=== PATIENT | female | born 1995 | race African-American/Black ===

== ENCOUNTER 2017-08-14 11:15 | Emergency (ER) | payer BC ==
[~2017-08-14] VITALS: Ht 157.5 cm; Wt 50.0 kg
[2017-08-14 11:19] VITALS: BP 108/62; PULSE 110; RESP 18; TEMP 99.2; O2SAT 100
--- NOTE | 2017-08-14 12:51 | PD ---
HPI Chief Complaint: GI Complaint Time Seen by Provider: 12:42 Travel History International Travel<30 days: No Contact w/Intl Traveler<30days: No Traveled to known affect area: No History of Present Illness HPI The patient is a 22-year-old female who presents to the emergency department for epigastric abdominal discomfort and vomiting that started Saturday night. The patient was at a basketball game, at [facility], where she had a sausage hotdog and chips to eat. She then developed epigastric abdominal pain with nausea and vomiting. She notes decreased oral intake secondary to persistent vomiting. She denies any diarrhea or lower abdominal pain. Last menstrual cycle was July 27, 2017, she denies . She denies any fever, chills, sweats, or bodyaches. She denies any dysuria. Symptoms are moderate. There are no current alleviating factors. PFSH Past Medical History Medical History: Denies Significant Hx ?: Not LMP: 07/27/2017 Past Surgical History Surgical History: No Previous Surgery Social History Alcohol Use: No Tobacco Use: No Substance Use: No Allergies-Medications (Allergen,Severity, Reaction): Coded Allergies: No Known Allergies (Unverified , 08/14/17) Reported Meds & Prescriptions Reported Meds & Active Scripts Active Zofran Odt (Ondansetron Odt) 4 Mg Tab 4 Mg SL Q6HR PRN Review of Systems Except as stated in HPI: all other systems reviewed are Neg General / Constitutional: No: Fever, Chills Cardiovascular: No: Chest Pain or Discomfort Respiratory: No: Shortness of Breath Gastrointestinal: Positive: Nausea, Vomiting, No: Diarrhea, Abdominal Pain Genitourinary: No: Dysuria Musculoskeletal: No: Myalgias Physical Exam Narrative GENERAL: Awake, alert, pleasant 22-year-old female who appears her stated age and is in no acute respiratory distress. SKIN: Focused skin assessment warm/dry. HEAD: Atraumatic. Normocephalic. EYES: Pupils equal and round. No scleral icterus. No injection or drainage. ENT: No nasal bleeding or discharge. Slightly dry mucous membranes. NECK: Trachea midline. No JVD. CARDIOVASCULAR: Regular, tachycardic with a heart rate of 110. RESPIRATORY: No accessory muscle use. Clear to auscultation. Breath sounds equal bilaterally. GASTROINTESTINAL: Abdomen soft, mild epigastric tenderness. No guarding or rigidity. MUSCULOSKELETAL: No obvious deformities. No clubbing. No cyanosis. No edema. NEUROLOGICAL: Awake and alert. No obvious cranial nerve deficits. Motor grossly within normal limits. Normal speech. PSYCHIATRIC: Appropriate mood and affect; insight and judgment normal. Data Data Last Documented VS Vital Signs Date Time Temp Pulse Resp B/P (MAP) Pulse Ox O2 Delivery O2 Flow Rate FiO2 08/14/17 11:19 99.2 110 18 108/62 (77) 100 Orders Orders Complete Blood Count With Diff (08/14/17 11:42) Comprehensive Metabolic Panel (08/14/17 11:42) Urinalysis - C+S If Indicated (08/14/17 11:42) Lipase (08/14/17 11:42) Ed Urine Pregnancytest Poc (08/14/17 11:42) Sodium Chlor 0.9% 1000 Ml Inj (Ns 1000 M (08/14/17 13:00) Ondansetron Inj (Zofran Inj) (08/14/17 13:00) Labs Laboratory Tests Test 08/14/17 11:50 08/14/17 11:55 White Blood Count 9.3 TH/MM3 Red Blood Count 5.04 MIL/MM3 Hemoglobin 14.6 GM/DL Hematocrit 44.0 % Mean Corpuscular Volume 87.4 FL Mean Corpuscular Hemoglobin 29.0 PG Mean Corpuscular Hemoglobin Concent 33.1 % Red Cell Distribution Width 13.6 % Platelet Count 161 TH/MM3 Mean Platelet Volume 9.2 FL Neutrophils (%) (Auto) 77.3 % Lymphocytes (%) (Auto) 13.9 % Monocytes (%) (Auto) 6.7 % Eosinophils (%) (Auto) 1.5 % Basophils (%) (Auto) 0.6 % Neutrophils # (Auto) 7.2 TH/MM3 Lymphocytes # (Auto) 1.3 TH/MM3 Monocytes # (Auto) 0.6 TH/MM3 Eosinophils # (Auto) 0.1 TH/MM3 Basophils # (Auto) 0.1 TH/MM3 CBC Comment DIFF FINAL Differential Comment Blood Urea Nitrogen 8 MG/DL Creatinine 0.72 MG/DL Random Glucose 56 MG/DL Total Protein 7.7 GM/DL Albumin 4.0 GM/DL Calcium Level 9.1 MG/DL Alkaline Phosphatase 49 U/L Aspartate Amino Transf (AST/SGOT) 25 U/L Alanine Aminotransferase (ALT/SGPT) 18 U/L Total Bilirubin 0.5 MG/DL Sodium Level 135 MEQ/L Potassium Level 4.0 MEQ/L Chloride Level 108 MEQ/L Carbon Dioxide Level 18.8 MEQ/L Anion Gap 8 MEQ/L Estimat Glomerular Filtration Rate 103 ML/MIN Lipase 192 U/L Urine Color LIGHT-YELLOW Urine Turbidity CLEAR Urine pH 8.0 Urine Specific [place] 1.012 Urine Protein NEG mg/dL Urine Glucose (UA) NEG mg/dL Urine Ketones NEG mg/dL Urine Occult Blood NEG Urine Nitrite NEG Urine Bilirubin NEG Urine Urobilinogen LESS THAN 2.0 MG/DL Urine Leukocyte Esterase NEG Urine RBC LESS THAN 1 /hpf Microscopic Urinalysis Comment CULT NOT INDICATED MDM Medical Decision Making Medical Screen Exam Complete: Yes Emergency Medical Condition: Yes Medical Record Reviewed: Yes Interpretation(s) Laboratory Tests Test 08/14/17 11:50 08/14/17 11:55 White Blood Count 9.3 TH/MM3 Red Blood Count 5.04 MIL/MM3 Hemoglobin 14.6 GM/DL Hematocrit 44.0 % Mean Corpuscular Volume 87.4 FL Mean Corpuscular Hemoglobin 29.0 PG Mean Corpuscular Hemoglobin Concent 33.1 % Red Cell Distribution Width 13.6 % Platelet Count 161 TH/MM3 Mean Platelet Volume 9.2 FL Neutrophils (%) (Auto) 77.3 % Lymphocytes (%) (Auto) 13.9 % Monocytes (%) (Auto) 6.7 % Eosinophils (%) (Auto) 1.5 % Basophils (%) (Auto) 0.6 % Neutrophils # (Auto) 7.2 TH/MM3 Lymphocytes # (Auto) 1.3 TH/MM3 Monocytes # (Auto) 0.6 TH/MM3 Eosinophils # (Auto) 0.1 TH/MM3 Basophils # (Auto) 0.1 TH/MM3 CBC Comment DIFF FINAL Differential Comment Blood Urea Nitrogen 8 MG/DL Creatinine 0.72 MG/DL Random Glucose 56 MG/DL Total Protein 7.7 GM/DL Albumin 4.0 GM/DL Calcium Level 9.1 MG/DL Alkaline Phosphatase 49 U/L Aspartate Amino Transf (AST/SGOT) 25 U/L Alanine Aminotransferase (ALT/SGPT) 18 U/L Total Bilirubin 0.5 MG/DL Sodium Level 135 MEQ/L Potassium Level 4.0 MEQ/L Chloride Level 108 MEQ/L Carbon Dioxide Level 18.8 MEQ/L Anion Gap 8 MEQ/L Estimat Glomerular Filtration Rate 103 ML/MIN Lipase 192 U/L Urine Color LIGHT-YELLOW Urine Turbidity CLEAR Urine pH 8.0 Urine Specific [place] 1.012 Urine Protein NEG mg/dL Urine Glucose (UA) NEG mg/dL Urine Ketones NEG mg/dL Urine Occult Blood NEG Urine Nitrite NEG Urine Bilirubin NEG Urine Urobilinogen LESS THAN 2.0 MG/DL Urine Leukocyte Esterase NEG Urine RBC LESS THAN 1 /hpf Microscopic Urinalysis Comment CULT NOT INDICATED Differential Diagnosis Differential diagnosis includes food poisoning, gastritis, gastritis, enteritis , colitis, viral syndrome, electrolyte abnormality, dehydration, acute kidney injury, acute renal failure. Narrative Course IV was established, labs are drawn and sent, and the patient was placed on cardiac telemetry monitoring and continuous pulse oximetry monitoring. The patient was administered Zofran 4 mg intravenously and 1 L of normal saline. Labs are unremarkable. Bedside UA test is negative. UA is negative. Lipase is unremarkable. The patient appears to have gastritis versus food poisoning. Patient was reassessed at 2 PM. The patient's symptoms have improved, she was provided by mouth challenge. The patient tolerated by mouth challenge without difficulty. Diagnosis Primary Impression: Nausea and vomiting Qualified Codes: R11.2 - Nausea with vomiting, unspecified Patient Instructions: General Instructions Additional Instructions: Please provide the patient a copy of her labs at discharge. Zofran as directed. Clear liquid diet and advance as tolerated. Follow-up with your primary physician. Med/Other Pt SpecificInfo: Prescription(s) given Scripts Ondansetron Odt (Zofran Odt) 4 Mg Tab 4 MG SL Q6HR Y for Nausea/Vomiting, #7 TAB 0 Refills Prov: Sai Morataya MD 08/14/17 Disposition: 01 DISCHARGE HOME Condition: Stable Sai Morataya MD Aug 14, 2017 12:51
[2017-08-14 12:58] LABS: AUTOMATED NEUTROPHIL # 7.2 TH/MM3 (1.8-7.7); BASOPHIL # 0.1 TH/MM3 (0-0.2); BASOPHIL % 0.6 % (0.0-2.0); EOSINOPHIL # 0.1 TH/MM3 (0-0.4); EOSINOPHIL % 1.5 % (0.0-4.0); HEMOGLOBIN 14.6 GM/DL (11.6-15.3); LYMPH % 13.9 % (9.0-44.0); LYMPHOCYTE # 1.3 TH/MM3 (1.0-4.8); MEAN CELL VOLUME 87.4 FL (80.0-100.0); MEAN CORPUSCULAR HGB CONC 33.1 % (32.0-36.0); MEAN PLATELET VOLUME 9.2 FL (7.0-11.0); MONO % 6.7 % (0.0-8.0); MONOCYTE # 0.6 TH/MM3 (0-0.9); NEUT % 77.3 % (16.0-70.0); PLATELET COUNT 161 TH/MM3 (150-450); RED BLOOD COUNT 5.04 MIL/MM3 (4.00-5.30); RED CELL DISTRIBUTION WIDTH 13.6 % (11.6-17.2); WHITE BLOOD COUNT 9.3 TH/MM3 (4.0-11.0)
[2017-08-14 13:00] LABS: BILIRUBIN, URINE NEG (NEG); BLOOD, URINE NEG (NEG); GLUCOSE,URINE NEG (NEG); KETONE, URINE NEG (NEG); NITRITE,URINE NEG (NEG); URINE COLOR LIGHT-YELLOW (YELLW/STRAW); URINE LEUKOCYTE ESTERASE NEG (NEG)
[2017-08-14] MEDS ORDERED: SODIUM CHLOR 0.9% 1000 ML INJ 1,000 ML IV ONE (13:00)
[2017-08-14] MEDS ORDERED: ONDANSETRON HCL 4 MG/2 ML VIAL IV PUSH ONE (13:00)
[2017-08-14 13:17] LABS: ALT (GPT) 18 U/L (9-42); AST (GOT) 25 U/L (16-38); BICARBONATE 18.8 MEQ/L (21.0-32.0); BLOOD UREA NITROGEN 8 MG/DL (7-18); CALCIUM 9.1 MG/DL (8.5-10.1); CHLORIDE 108 MEQ/L (98-107); CREATININE 0.72 MG/DL (0.50-1.00); GLOMERULAR FILTRATION RATE 103 ML/MIN (>89); GLUCOSE,RANDOM 56 MG/DL (74-106); SODIUM (NA) 135 MEQ/L (136-145)
[2017-08-14 13:19] LABS: ALKALINE PHOSPHATASE 49 U/L (45-117); TOTAL BILIRUBIN ADULT 0.5 MG/DL (0.2-1.0); TOTAL PROTEIN 7.7 GM/DL (6.4-8.2)
[2017-08-14] MEDS ORDERED: ZOFR4TAB3 SL (14:01)
== END 2017-08-14 14:41 | disposition home or self-care (01) ==
LOC: NEPD 11:15
DX: R11.2 Nausea with vomiting, unspecified (principal); R10.13 Epigastric pain
CPT/HCPCS: 80053; 81001; 83690; 84703; 85025; 96361; 96374; 99284; J2405; J7030

== ENCOUNTER 2017-08-16 18:08 | Emergency (ER) | payer BC ==
[~2017-08-16] VITALS: Ht 157.5 cm; Wt 50.0 kg
[~2017-08-16 18:08] MED LIST: ZOFR4TAB3 SL
[2017-08-16 18:10] VITALS: BP 122/80; PULSE 83; RESP 15; TEMP 98.5; O2SAT 99
[2017-08-16] MEDS ORDERED: AMOX500T PO (19:42)
--- NOTE | 2017-08-16 19:42 | PD ---
HPI Chief Complaint: ENT Complaint Time Seen by Provider: 19:33 Travel History International Travel<30 days: No Contact w/Intl Traveler<30days: No Traveled to known affect area: No History of Present Illness HPI 22-year-old female complains of sore throat. Patient states the symptoms started yesterday. Patient denies earache. Patient denies any coughing congestion. Patient denies any headache. Patient denies any body ache. Patient denies any nausea vomiting diarrhea. PFSH Past Medical History Medical History: Denies Significant Hx Diminished Hearing: No Immunizations Current: Yes Tetanus Vaccination: > 5 Years Influenza Vaccination: No ?: Not LMP: 07/27/17 : 0 Past Surgical History Surgical History: No Previous Surgery Social History Alcohol Use: No Tobacco Use: No Substance Use: No Allergies-Medications (Allergen,Severity, Reaction): Coded Allergies: No Known Allergies (Unverified , 08/16/17) Reported Meds & Prescriptions Reported Meds & Active Scripts Active No Active Prescriptions or Reported Medications Review of Systems General / Constitutional: No: Fever Eyes: No: Visual changes HENT: Positive: Sore Throat, No: Headaches Cardiovascular: No: Chest Pain or Discomfort Respiratory: No: Shortness of Breath Gastrointestinal: No: Abdominal Pain Genitourinary: No: Dysuria Musculoskeletal: No: Pain Skin: No Rash Neurologic: No: Weakness Psychiatric: No: Depression Endocrine: No: Polydipsia Hematologic/Lymphatic: No: Easy Bruising Physical Exam Narrative GENERAL: Well-nourished, well-developed patient. SKIN: Focused skin assessment warm/dry. HEAD: Normocephalic. EYES: No scleral icterus. No injection or drainage. TM: Clear. Throat: Mild erythematous. NECK: Supple, trachea midline. No JVD or lymphadenopathy. CARDIOVASCULAR: Regular rate and rhythm without murmurs, gallops, or rubs. RESPIRATORY: Breath sounds equal bilaterally. No accessory muscle use. GASTROINTESTINAL: Abdomen soft, non-tender, nondistended. MUSCULOSKELETAL: No cyanosis, or edema. BACK: Nontender without obvious deformity. No CVA tenderness. Data Data Last Documented VS Vital Signs Date Time Temp Pulse Resp B/P (MAP) Pulse Ox O2 Delivery O2 Flow Rate FiO2 08/16/17 18:10 98.5 83 15 122/80 (94) 99 MDM Medical Decision Making Medical Screen Exam Complete: Yes Emergency Medical Condition: Yes Differential Diagnosis Differential diagnosis including pharyngitis, viral versus strep Narrative Course 22-year-old female complains of sore throat. Diagnosis Primary Impression: Pharyngitis Qualified Codes: J02.9 - Acute pharyngitis, unspecified Patient Instructions: General Instructions Additional Instructions: Amoxicillin as directed. Tylenol for fever. Follow-up with personal physician. Return if worse. Med/Other Pt SpecificInfo: Prescription(s) given Scripts Amoxicillin (Amoxicillin) 500 Mg Tab 500 MG PO TID for Infection, #30 TAB 0 Refills Prov: Harjinder Buenrostro MD 08/16/17 Disposition: 01 DISCHARGE HOME Condition: Stable Harjinder Buenrostro MD Aug 16, 2017 19:42
== END 2017-08-16 19:56 | disposition home or self-care (01) ==
LOC: NEPD 18:08
DX: J02.9 Acute pharyngitis, unspecified (principal)
CPT/HCPCS: 99283

== ENCOUNTER 2017-09-16 18:02 | Emergency (ER) | payer BC ==
[~2017-09-16 18:02] MED LIST changes: +AMOX500T PO; -ZOFR4TAB3 SL
[2017-09-16 18:32] VITALS: BP 122/62; PULSE 68; RESP 14; TEMP 97.6; O2SAT 100
--- NOTE | 2017-09-16 19:46 | PD ---
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 Onset after the patient used Dove pomegranate soap in the shower last night. Patient denies itching in other areas of the skin. She denies fevers, chills, nausea, vomiting, abdominal pain, vaginal discharge, dysuria, back pain. She endorses protected sex with a male partner 4 nights ago. She's never had a reaction to latex. LMP 08/22/17. States she is otherwise healthy, no history of diabetes. PFSH Past Medical History Diminished Hearing: No Immunizations Current: Yes ?: Not LMP: 08/22/2017 : 0 Social History Alcohol Use: No Tobacco Use: No Substance Use: No Allergies-Medications (Allergen,Severity, Reaction): Coded Allergies: No Known Allergies (Unverified , 09/16/17) Reported Meds & Prescriptions Reported Meds & Active Scripts Active Monistat 3 Vaginal Cream (Miconazole 3 Vaginal Cream) 4 % Cream 1 Appl VAGINAL HS 3 Days Amoxicillin 500 Mg Tab 500 Mg PO TID Review of Systems Except as stated in HPI: all other systems reviewed are Neg Physical Exam Narrative GENERAL: Well-nourished, well-developed AA female in NAD. SKIN: Focused skin assessment warm/dry. HEAD: Normocephalic. EYES: No scleral icterus. No injection or drainage. NECK: Supple, trachea midline. No JVD or lymphadenopathy. CARDIOVASCULAR: Regular rate and rhythm without murmurs, gallops, or rubs. RESPIRATORY: Breath sounds clear and equal bilaterally. No accessory muscle use. GASTROINTESTINAL: Abdomen soft, non-tender, nondistended. Active bowel sounds FEMALE : No vulvar lesions. Mild erythema of the labia majora. MUSCULOSKELETAL: No cyanosis, or edema. BACK: Nontender without obvious deformity. No CVA tenderness. Data Data Last Documented VS Vital Signs Date Time Temp Pulse Resp B/P (MAP) Pulse Ox O2 Delivery O2 Flow Rate FiO2 09/16/17 18:32 97.6 68 14 122/62 (82) 100 Orders Orders Ed Discharge Order (09/16/17 19:48) [facility] Medical Decision Making Medical Screen Exam Complete: Yes Emergency Medical Condition: Yes Differential Diagnosis Contact dermatitis versus allergic reaction versus vaginal candidiasis versus other Narrative Course 22 YO F presents to the ED for evaluation of less than 24 hour history of external vaginal itching. Onset after the patient used Dove pomegranate soap in the shower last night. Patient denies itching in other areas of the skin. She denies fevers, chills, nausea, vomiting, abdominal pain, vaginal discharge, dysuria, back pain. She endorses protected sex with a male partner 4 nights ago. She's never had a reaction to latex. LMP 08/22/17. Vitals reviewed. On exam the patient has mild erythema of the labia majora, otherwise unremarkable. Suspect this is contact dermatitis, although vulvovaginal candidiasis is on the differential. Patient's instructed to avoid known ear tenths, use an emollient type lotion on the affected skin. She is prescribed miconazole instructed to use this should symptoms continue. She is instructed to follow- up with the [facility] or [facility]. She indicated understanding of instructions. She is stable and discharged home. Diagnosis Primary Impression: Vulvovaginal itching Referrals: Infectious Disease Technician Additional Instructions: Rest, hydrate. Avoid known irritants. Apply medication topically as prescribed. Follow-up with a laboratory machinist or [facility] if symptoms persist. Return to the ED for worsening symptoms or any urgent or emergent medical condition. Med/Other Pt SpecificInfo: Prescription(s) given Scripts Miconazole 3 Vaginal Cream (Monistat 3 Vaginal Cream) 4 % Cream 1 APPL VAGINAL HS for Infection for 3 Days, #1 BOX 0 Refills Prov: Pernell Curiel MD 09/16/17 Disposition: DISCHARGE HOME Condition: Stable Bindu Horn Sep 16, 2017 19:46
[2017-09-16] MEDS ORDERED: MICO1CRE2 VAGINAL (19:47)
== END 2017-09-16 20:06 | disposition home or self-care (01) ==
LOC: NED 18:02 → NEPK 20:06
DX: L29.9 Pruritus, unspecified (principal)
CPT/HCPCS: 99283